=== PATIENT | female | born 1975 | race Hispanic/Latino ===

== ENCOUNTER 2022-12-09 13:37 | Emergency (ER) | payer OTHER, BC ==
[~2022-12-09] VITALS: Ht 167.6 cm; Wt 91.4 kg
[2022-12-09] MEDS ORDERED: MONTELUKAST SOD10 MG (13:51)
[2022-12-09] MEDS ORDERED: ROSUVASTATIN CA10 MG (13:51)
[2022-12-09] MEDS ORDERED: SYNTHROID137 MCG (13:51)
[2022-12-09] MEDS ORDERED: XANAX0.25 MG (13:52)
[2022-12-09 14:31] LABS: BASOPHILS 0.9 % (0-2); EOSINOPHILS 1.5 % (0-6); HEMOGLOBIN 14.5 g/dL (12.0-18.0); LYMPHOCYTES 29.4 % (24-44); MCH 29.6 (27-36); MCV 89.6 fl (81-99); MONOCYTES 6.7 % (0-12); NEUTROPHILS 61.5 % (39-80); PLATELET COUNT 337 K/uL (140-440); RBC 4.91 M/ul (4.3-5.7); RDW 13.9 (10.5-15.0)
[2022-12-09 14:40] LABS: ALBUMIN 3.8 g/dL (3.4-5.0); ALBUMIN/GLOBULIN RATIO 0.93 (1.1-2.4); ANION GAP 16.6 (7-21); BILIRUBIN, TOTAL 0.4 ng/dL (0.2-1.0); BUN/CREATININE RATIO 18.18 (6.0-28.6); CALCIUM 9.1 mg/dL (8.5-10.1); CREATININE, SERUM 0.66 mg/dL (0.55-1.02); POTASSIUM 3.6 mmol/L (3.5-5.1); PROTEIN, TOTAL 7.9 g/dL (6.4-8.2)
[2022-12-09] MEDS ORDERED: REGLAN10 MG PO (15:57)
[2022-12-09 16:04] VITALS: BP 120/74
== END 2022-12-09 16:04 | disposition home or self-care (01) ==
LOC: ED 13:37
PROVIDERS: Emergency Medicine
DX: R51.9 Headache, unspecified (principal); Z88.1 Allergy status to other antibiotic agents; Z79.899 Other long term (current) drug therapy
CPT/HCPCS: 36415; 70450; 80053; 85025; 96374; 96375; 99284-25; J1885; J2765